=== PATIENT | male | born 1945 | race Caucasian/White ===

== ENCOUNTER → 2020-09-26 | Day surgery (SDC) | payer MEDICARE, OTHER ==
[2020-09-26] MEDS: Lactated Ringers 1,000 ML IV SCH (08:40)
[2020-09-26 10:23] VITALS: BP 143/87; PULSE 62
--- NOTE | 2020-09-29 09:27 | OR ---
DATE OF OPERATION: 09/26/2020 PREOPERATIVE DIAGNOSIS: 1. FAMILY HISTORY OF COLON CANCER. 2. HISTORY OF POLYPS. POSTOPERATIVE DIAGNOSIS: 1. FAMILY HISTORY OF COLON CANCER. 2. HISTORY OF POLYPS. SURGEON: Sai Orourke MD PROCEDURE: FULL-LENGTH COLONOSCOPY WITH POLYP REMOVAL X6. ANESTHESIA: MAC. COMPLICATIONS: None. SPECIMEN: Tubular adenomas x6, see report. FINDINGS: 1. Full-length diagnostic colonoscopy. 2. Mild sigmoid diverticulosis. 3. Six small all less than 0.5 cm tubular adenomas, see report. RECOMMENDATIONS: Followup colonoscopy in 3 years. INDICATIONS: The patient has a family history of colon cancer and prior colonoscopy. He had polyps removed. He is due for a followup at this time. DESCRIPTION OF PROCEDURE: The patient was prepped and draped, placed in the left lateral decubitus position. A lubricated Olympus colonoscope was inserted and easily advanced to the cecum. Direct visualization of the ileocecal valve and appendiceal orifice was accomplished. The bowel prep was adequate. Upon withdrawal, right in the cecal pouch, the patient had a small 3 or 4 mm stalk tubular adenoma easily removed with a snare and suctioned into polyp trap #1. On the backside of the ileocecal valve in the most proximal ascending colon, the patient had a small cluster of sessile polyps, 2 were removed in their entirety with a forceps biopsy x2. There was a questionable third polyp, thickened haustral fold with a little mucosal abnormality. We ended up removing what appeared to be the thickened tissue with 4 separate forceps biopsies in its entirety. The rest of the ascending colon appeared benign. Just past the hepatic flexure, there was another small sessile polyp, probably 3 mm, removed with forceps biopsy x2 as well. The rest of the transverse and descending colons were benign. The patient does have some scattered diverticula in the sigmoid colon, but very minimal in severity. No other polyps, masses, lesions, or ulcerations were seen in the sigmoid and rectosigmoid area. In the proximal rectal vault, the patient had polyp #6 which was also a small sessile 2 mm polyp removed in its entirety with a forceps biopsy x2. Retroflexion of the scope in the rectum showed some perianal hemorrhoid disease, otherwise no lesions. Air was suctioned and the scope removed without complication. DEIDRE/RUPINDER /[id number]
== END ==
LOC: CC.SDS 08:24
PROVIDERS: ATTEND Family Medicine
DX: Z12.11 Encounter for screening for malignant neoplasm of colon (principal); D12.0 Benign neoplasm of cecum; D12.2 Benign neoplasm of ascending colon; D12.3 Benign neoplasm of transverse colon; D12.8 Benign neoplasm of rectum; K57.30 Diverticulosis of large intestine without perforation or abscess without bleeding; J45.909 Unspecified asthma, uncomplicated; I10 Essential (primary) hypertension; E78.5 Hyperlipidemia, unspecified; E55.9 Vitamin D deficiency, unspecified; Z80.0 Family history of malignant neoplasm of digestive organs; Z88.1 Allergy status to other antibiotic agents; Z88.8 Allergy status to other drugs, medicaments and biological substances; Z79.899 Other long term (current) drug therapy; Z98.890 Other specified postprocedural states
CPT/HCPCS: 00812; 45380; 45385; 88305; J7120

== ENCOUNTER 2023-09-16 06:50 | Day surgery (SDC) | payer MEDICARE, OTHER ==
[2023-09-16] MEDS: Lactated Ringers 1,000 ML IV SCH (07:10)
[2023-09-16] MEDS ORDERED: Propofol 200 MG/20 ML SDV ONE (07:22)
[2023-09-16] MEDS ORDERED: Ketamine 200 MG/20 ML MDV ONE (07:22)
[2023-09-16] MEDS ORDERED: fentaNYL 50 MCG/ML SDV ONE (07:22)
[2023-09-16 08:47] VITALS: BP 137/61; PULSE 76
== END 2023-09-16 08:47 | disposition home or self-care (01) ==
LOC: CC.SDS 06:50
PROVIDERS: ATTEND Family Medicine
DX: Z12.11 Encounter for screening for malignant neoplasm of colon (principal); D12.2 Benign neoplasm of ascending colon; F41.9 Anxiety disorder, unspecified; I10 Essential (primary) hypertension; E78.5 Hyperlipidemia, unspecified; E55.9 Vitamin D deficiency, unspecified; J45.909 Unspecified asthma, uncomplicated; G57.02 Lesion of sciatic nerve, left lower limb; K63.5 Polyp of colon; N40.0 Benign prostatic hyperplasia without lower urinary tract symptoms; Z79.899 Other long term (current) drug therapy; Z80.0 Family history of malignant neoplasm of digestive organs; Z86.010 Personal history of colon polyps; Z88.6 Allergy status to analgesic agent
CPT/HCPCS: 00811; 45385; 88305; 99100; J2704; J3010; J3490; J7120